=== PATIENT | female | born 1955 | race Caucasian/White ===

== ENCOUNTER 2022-01-21 23:36 | Observation (INO) | payer MEDICARE, OTHER ==
--- NOTE | 2022-01-22 00:15 | ED ---
Chest Pain HPI - General Chief Complaint: Chest Pain Stated Complaint: Chest Pain, High Blood Pressure Time Seen by Provider: 01/22/22 00:15 Source: patient, RN notes reviewed, old records reviewed Mode of arrival: ambulatory Limitations: no limitations - History of Present Illness Initial Comments: This is a 66-year-old female with nonspecific chest pain. Patient is becoming more familiar with her hospital and being seen more often recently as she is from out of town. Patient coming in for severely elevated blood pressure outpatient basis positive nausea positive shortness of breath positive chest pain. No fevers, no other complaints. Patient suffers 5 blood pressure and anxiety as well. She has had extensive workups for evaluation regarding these complaints MD Complaint: chest pain, other (HTN) -: hour(s) Onset: during rest, during exertion Pain Location: substernal Pain Radiation: none Severity: mild Severity scale (1-10): 2 Quality: tightness, other (fluttering) Consistency: intermittent Improves With: nothing Worsens With: nothing Anginal Symptoms: sense of impending doom Other Symptoms: palpitations Treatments Prior to Arrival: none - Related Data Home Medications Medication Instructions Recorded Confirmed Aspirin EC [Ecotrin Low Dose] 81 mg PO DAILY 01/10/22 01/22/22 Cholecalciferol [Vitamin D3 (25 50 mcg PO DAILY 01/10/22 01/22/22 Mcg = 1000 Iu)] HYDROcodone/APAP 5-325MG [[place] 1 tab PO HS PRN 01/10/22 01/22/22 5-325] Iron 9mg Gummie 18 mg PO DAILY 01/10/22 01/22/22 Magnesium Oxide 400 mg PO DAILY 01/10/22 01/22/22 [place]-3 Fatty Acids/Fish Oil [Fish 1 cap PO DAILY 01/10/22 01/22/22 Oil 1,000 mg Softgel] Multivitamin [Multivitamins Adult 2 tab PO DAILY 01/22/22 01/22/22 Gummies] Previous Rx's Medication Instructions Recorded Famotidine [Pepcid] 20 mg PO DAILY tab 01/11/22 Meclizine [Antivert] 25 mg PO TID #90 tab 01/11/22 busPIRone HCl [Buspar] 7.5 mg PO BID #90 tab 01/23/22 carvediloL [Coreg*] 12.5 mg PO BID-W/MEALS #60 tab 01/23/22 Allergies Allergy/AdvReac Type Severity Reaction Status Date / Time atorvastatin [From Lipitor] AdvReac Foot Pain Verified 01/22/22 06:53 Sulfa (Sulfonamide AdvReac Stomach Verified 01/22/22 06:53 Antibiotics) Pain Review of Systems ROS Statement: Those systems with pertinent positive or pertinent negative responses have been documented in the HPI. ROS Other: All systems not noted in ROS Statement are negative. EKG Findings - EKG Comments: EKG Findings:: EKG sinus rhythm 81 NH 135 QRS 90 QTC 417 Past Medical History Past Medical History: Hypertension Additional Past Medical History / Comment(s): vertigo, MVP History of Any Multi-Drug Resistant Organisms: None Reported Past Surgical History: Appendectomy, Orthopedic Surgery, Tubal Ligation Additional Past Surgical History / Comment(s): right rib removed Past Anesthesia/Blood Transfusion Reactions: No Reported Reaction Additional Past Anesthesia/Blood Transfusion Reaction / Comment(s): Pt has received blood in past without reaction. Past Psychological History: No Psychological Hx Reported Smoking Status: Former smoker Past Alcohol Use History: None Reported Past Drug Use History: None Reported - Past Family History Father Family Medical History: Cancer Additional Family Medical History / Comment(s): Father of metastatic cancer, primary unknown to pt. Mother Additional Family Medical History / Comment(s): Mother is alive. She had intestinal blockage with surgery General Exam Limitations: no limitations General appearance: alert, in no apparent distress, anxious Head exam: Present: atraumatic, normocephalic, normal inspection Eye exam: Present: normal appearance, PERRL, EOMI. Absent: scleral icterus, conjunctival injection, periorbital swelling ENT exam: Present: normal exam, mucous membranes moist Neck exam: Present: normal inspection. Absent: tenderness, meningismus, lymphadenopathy Respiratory exam: Present: normal lung sounds bilaterally. Absent: respiratory distress, wheezes, rales, rhonchi, stridor Cardiovascular Exam: Present: regular rate, normal rhythm, normal heart sounds. Absent: systolic murmur, diastolic murmur, rubs, gallop, clicks GI/Abdominal exam: Present: soft, normal bowel sounds. Absent: distended, tenderness, guarding, rebound, rigid Extremities exam: Present: normal inspection, full ROM, normal capillary refill. Absent: tenderness, pedal edema, joint swelling, calf tenderness Back exam: Present: normal inspection Neurological exam: Present: alert, oriented X3, CN II-XII intact Psychiatric exam: Present: normal affect, normal mood Skin exam: Present: warm, dry, intact, normal color. Absent: rash Course Vital Signs 01/21/22 01/22/22 01/22/22 23:43 00:33 01:35 Temperature 98.1 F Pulse Rate 78 80 73 Respiratory 16 18 18 Rate Blood Pressure 156/76 140/76 130/72 Blood Pressure [Right Arm Sitting] Blood Pressure [Right Arm Standing] Blood Pressure [Right Arm Supine] O2 Sat by Pulse 98 98 97 Oximetry 01/22/22 01/22/22 01/22/22 05:23 08:01 08:49 Temperature Pulse Rate 73 63 75 Respiratory 22 18 18 Rate Blood Pressure 108/82 126/64 Blood Pressure [Right Arm Sitting] Blood Pressure [Right Arm Standing] Blood Pressure [Right Arm Supine] O2 Sat by Pulse 100 96 96 Oximetry 01/22/22 01/22/22 01/22/22 09:15 09:31 11:53 Temperature 98.4 F Pulse Rate 66 65 Respiratory 18 18 Rate Blood Pressure 136/83 129/89 Blood Pressure 130/78 [Right Arm Sitting] Blood Pressure 136/83 [Right Arm Standing] Blood Pressure 132/70 [Right Arm Supine] O2 Sat by Pulse 97 96 Oximetry - Reevaluation(s) Reevaluation #1: 01/22/22 Record is reviewed Reevaluation #2: 01/22/22 Patient doesn't fill comfortable with discharge, still with episodic chest pain and concern that blood pressure will elevate Disposition Clinical Impression: Atypical chest pain, Chest pain, Hypertension, Anxiety Disposition: ADMITTED IP TO THIS [facility] Condition: Fair Is patient prescribed a controlled substance at d/c from ED?: No Time of Disposition: 02:05
--- NOTE | 2022-01-22 01:07 | XR ---
EXAMINATION TYPE: XR chest 2V DATE OF EXAM: 01/22/2022 COMPARISON: NONE HISTORY: Chest pain TECHNIQUE: 2 views FINDINGS: Heart and mediastinum are normal. Lungs are clear. Diaphragm is normal. There are surgical clips over the right upper lateral lung field. Diaphragm is normal. There are chest leads. Bony thora x is intact IMPRESSION: No active cardiopulmonary disease. Normal heart.
[2022-01-22 01:15] LABS: Basophils # (A) 0.1 k/uL (0-0.2); Basophils % (A) 0 %; Eosinophils # (A) 0.1 k/uL (0-0.7); Eosinophils % (A) 0 %; HCT 39.5 % (34.0-46.0); HGB 12.4 gm/dL (11.4-16.0); Lymphocytes # (A) 2.8 k/uL (1.0-4.8); Lymphocytes % (A) 23 %; MCHC 31.5 g/dL (31.0-37.0); MCV 92.1 fL (80.0-100.0); Mean Platelet Volume 7.4; Monocytes # (A) 0.7 k/uL (0-1.0); Monocytes % (A) 6 %; Neutrophils # (A) 8.5 k/uL (1.3-7.7); Neutrophils % (A) 70 %; Platelet Count 342 k/uL (150-450); RBC 4.28 m/uL (3.80-5.40); RDW 13.8 % (11.5-15.5); WBC 12.1 k/uL (3.8-10.6)
[2022-01-22 01:19] LABS: INR 0.9 (<1.2); Partial Thromboplastin Time 26.2 sec (22.0-30.0); Prothrombin Time 10.4 sec (9.0-12.0)
[2022-01-22 01:24] LABS: ALT 14 U/L (4-34); AST 26 U/L (14-36); African American GFR (CKD) >90 (>60 ml/min/1.73 sqM); Albumin 4.2 g/dL (3.5-5.0); Alkaline Phosphatase 103 U/L (38-126); Anion Gap 9 mmol/L; Blood Urea Nitrogen 31 mg/dL (7-17); Calcium 8.8 mg/dL (8.4-10.2); Carbon Dioxide 25 mmol/L (22-30); Chloride 104 mmol/L (98-107); Glucose 108 mg/dL (74-99); Magnesium 2.1 mg/dL (1.6-2.3); Non-African American GFR(CKD) >90 (>60 ml/min/1.73 sqM); Potassium 3.7 mmol/L (3.5-5.1); Sodium 138 mmol/L (137-145); Total Bilirubin 0.5 mg/dL (0.2-1.3); Total Protein 7.3 g/dL (6.3-8.2)
[2022-01-22] MEDS ORDERED: ACETAMINOPHEN TAB 325 MG TAB PO STA (02:20)
--- NOTE | 2022-01-22 09:17 | P.HPIM ---
History of Present Illness This is a pleasant 66 years old female with past medical history of hypertension, vertigo. thoracic outlet syndrome. She started seeing new PCP that she has appointment with on 02/05 Dr. Gray. 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 Leeann Corea she follows with him for mitral valve prolapse and thoracic outlet syndrome Patient presents because of chest pain Patient states that she has problem with hypertension and she's been monitoring her blood pressure for 5 months when she was first found to have significantly elevated systolic blood pressure at 275 at her [facility] office. Since then she have continuous fluttering in her chest as she However yesterday she has 2 episodes of sharp chest pain, central, nonradiating that lasted for 1-2 minutes associated with little dyspnea. Currently she is chest pain-free. No coughing. No vomiting or diarrhea. No dysuria or urgency. No headache or weakness or numbness. She denies smoking, alcohol or illicit drugs Hemodynamically patient is stable. Her blood pressure on admission was 156/76. Currently blood pressure 126/64 She has mild leukocytosis of 12.1. Trace of CBC, INR, BMP and liver enzymes are unremarkable. Troponin 3 are negative his 0.02. Chest x-ray: Negative for acute process. EKG shows normal sinus rhythm at [address]-T changes. QTC 417. in the emergency room patient was started on aspirin Cardiology team consulted, psychiatric consulted 12 Review of Systems CONSTITUTIONAL: No fever, no malaise, no fatigue. HEENT: No recent visual problems or hearing problems. Denied any sore throat. CARDIOVASCULAR: No orthopnea, PND, no palpitations, no syncope. PULMONARY: No shortness of breath, no cough, no hemoptysis. GASTROINTESTINAL: No diarrhea, no nausea, no vomiting, no abdominal pain. Normoactive bowel sounds. NEUROLOGICAL: No headaches, no weakness, no numbness. HEMATOLOGICAL: Denies any bleeding or petechiae. GENITOURINARY: Denies any burning micturition, frequency, or urgency. MUSCULOSKELETAL/RHEUMATOLOGICAL: Denies any joint pain, swelling, or any muscle pain. ENDOCRINE: Denies any polyuria or polydipsia. Past Medical History Past Medical History: Hypertension Additional Past Medical History / Comment(s): vertigo, MVP History of Any Multi-Drug Resistant Organisms: None Reported Past Surgical History: Appendectomy, Orthopedic Surgery, Tubal Ligation Additional Past Surgical History / Comment(s): right rib removed Past Anesthesia/Blood Transfusion Reactions: No Reported Reaction Additional Past Anesthesia/Blood Transfusion Reaction / Comment(s): Pt has received blood in past without reaction. Past Psychological History: No Psychological Hx Reported Smoking Status: Former smoker Past Alcohol Use History: None Reported Past Drug Use History: None Reported - Past Family History Father Family Medical History: Cancer Additional Family Medical History / Comment(s): Father of metastatic cancer, primary unknown to pt. Mother Additional Family Medical History / Comment(s): Mother is alive. She had intestinal blockage with surgery Medications and Allergies Home Medications Medication Instructions Recorded Confirmed Type Aspirin EC [Ecotrin Low Dose] 81 mg PO DAILY 01/10/22 01/22/22 History Carvedilol [Coreg] 25 mg PO BID 01/10/22 01/22/22 History Cholecalciferol [Vitamin D3 (25 50 mcg PO DAILY 01/10/22 01/22/22 History Mcg = 1000 Iu)] HYDROcodone/APAP 5-325MG [[place] 1 tab PO HS PRN 01/10/22 01/22/22 History 5-325] Iron 9mg Gummie 18 mg PO DAILY 01/10/22 01/22/22 History Magnesium Oxide 400 mg PO DAILY 01/10/22 01/22/22 History [place]-3 Fatty Acids/Fish Oil [Fish 1 cap PO DAILY 01/10/22 01/22/22 History Oil 1,000 mg Softgel] Potassium Gluconate [Potassium 99 mg PO DAILY 01/10/22 01/22/22 History Gluconate ER] hydroCHLOROthiazide [Hydrodiuril] 12.5 mg PO DAILY 01/10/22 01/22/22 History Famotidine [Pepcid] 20 mg PO DAILY tab 01/11/22 01/22/22 Rx Meclizine [Antivert] 25 mg PO TID #90 tab 01/11/22 01/22/22 Rx Multivitamin [Multivitamins Adult 2 tab PO DAILY 01/22/22 01/22/22 History Gummies] Allergies Allergy/AdvReac Type Severity Reaction Status Date / Time atorvastatin [From Lipitor] AdvReac Foot Pain Verified 01/22/22 06:53 Sulfa (Sulfonamide AdvReac Stomach Verified 01/22/22 06:53 Antibiotics) Pain Physical Exam Vitals: Vital Signs Temp Pulse Resp BP Pulse Ox 01/22/22 08:49 75 18 126/64 96 01/22/22 08:01 63 18 96 01/22/22 05:23 73 22 108/82 100 01/22/22 01:35 73 18 130/72 97 01/22/22 00:33 80 18 140/76 98 01/21/22 23:43 98.1 F 78 16 156/76 98 Intake and Output 01/21/22 01/22/22 01/22/22 22:59 06:59 14:59 Other: Weight 64.864 kg GENERAL: The patient is alert and oriented x3, not in any acute distress. Well developed, well nourished. HEENT: Pupils are round and equally reacting to light. EOMI. No scleral icterus. No conjunctival pallor. Normocephalic, atraumatic. No pharyngeal erythema. No thyromegaly. CARDIOVASCULAR: S1 and S2 present. No murmurs, rubs, or gallops. PULMONARY: Chest is clear to auscultation, no wheezing or crackles. ABDOMEN: Soft, nontender, nondistended, normoactive bowel sounds. No palpable organomegaly. MUSCULOSKELETAL: No joint swelling or deformity. EXTREMITIES: No cyanosis, clubbing, or pedal edema. NEUROLOGICAL: Gross neurological examination did not reveal any focal deficits. SKIN: No rashes. no petechiae. Results CBC & Chem 7: 01/22/22 00:41 01/22/22 00:41 Labs: Abnormal Lab Results - Last 24 Hours (Table) 01/22/22 01/22/22 Range/Units 00:41 00:41 WBC 12.1 H (3.8-10.6) k/uL Neutrophils # 8.5 H (1.3-7.7) k/uL BUN 31 H (7-17) mg/dL Glucose 108 H (74-99) mg/dL Assessment and Plan Assessment: chest pain, rule out cardiac causes anxiety Hypertension Leukocytosis, most likely reactive. History of vertigo History of thoracic outlet syndrome, open activation Plan: This is a pleasant 66 years old female who presents with chest pain and anxiety. Continue with aspirin during cardiology consult Check echocardiogram Psychiatric consult Start BuSpar Labs and medication were reviewed.. Continue same treatment. Continue with symptomatic treatment. Resume home medication. Monitor lytes and vitals. DVT and GI prophylaxis. Further recommendationsas per clinical course of the patient DVT prophylaxis: Subcutaneous heparin GI Prophylaxis: Pepcid Prognosis is guarded
[2022-01-22] MEDS: FAMOTIDINE 20 MG/2 ML VIAL IV SCH ×2 (09:28→21:13)
--- NOTE | 2022-01-22 09:28 | P.CRDCN ---
History of Present Illness History of present illness: HISTORY OF PRESENTING ILLNESS Patient is a pleasant 66-year-old female with history of hypertension, normal coronary arteries by heart catheterization in May 2021, reported Afib however not on anticoagulation, mitral valve disease per patient, thoracic outlet syndrome apparently status post right rib removal with prior numbness, peripheral neuropathy of bilateral upper and lower extremities. Patient normally follows with Dr. Oliver. She denies any history of coronary artery disease and recent had workup including left heart catheterization from May 2021 at [facility] which she was told was completely normal. She has been having symptoms of lightheadedness and dizziness and apparently extremely labile blood pressures up in the 180s at times and currently down in the low 100s. She presented to the hospital secondary to brief episodes of 2-3 seconds of sharp chest pain intermittently. Not associated with any nausea, diaphoresis and only lasting for 2-3 seconds. She also however admits to feeling more lightheaded and dizzy with getting up and walking around. She has been placed on meclizine after hospitalization 3 weeks ago with diagnosis of vertigo. She states most of her symptoms are worse with standing up and walking around. She states she was seen her PCP and apparently some of her home medications were not able to be refilled and she is looking for new PCP. She states she has however been taking the carvedilol. She believes she has actually stopped the hydrochlorothiazide. She denies any decreased appetite or change in her diet. She states she will fill her heart racing when she starts getting up and walking around. Blood work shows white blood cell count 12.1, hemoglobin 12.4, creatinine 0.6, BUN 31, troponin negative 3. EKG shows normal sinus rhythm, normal axis, nonspecific minimal ST depressions, rare PVC. REVIEW OF SYSTEMS At the time of my exam: CONSTITUTIONAL: Denies fever or chills. CARDIOVASCULAR: +chest pain, +shortness of breath, no orthopnea, PND, +palpitations. RESPIRATORY: Denies cough. GASTROINTESTINAL: Denies abdominal pain, diarrhea, constipation, nausea or vomiting. MUSCULOSKELETAL: Denies myalgias. NEUROLOGIC: Denies numbness, tingling or weakness. ENDOCRINE: Denies fatigue, weight change, polydipsia or polyurina. GENITOURINARY: Denies burning, hematuria or urgency with micturation. HEMATOLOGIC: Denies history of anemia or bleeding. PHYSICAL EXAMINATION Vital signs reviewed. CONSTITUTIONAL: No apparent distress. HEENT: Head is normocephalic. Pupils are equal, round. Sclerae anicteric. Mucous membranes of the mouth are moist. No JVD. No carotid bruit. CHEST EXAMINATION: Lungs are clear to auscultation. No chest wall tenderness is noted on palpation or with deep breathing. HEART EXAMINATION: Regular rate and rhythm. S1, S2 heard. No murmurs, gallops or rub. ABDOMEN: Soft, nontender. Positive bowel sounds. EXTREMITIES: 2+ peripheral pulses, no lower extremity edema and no calf tenderne ss. NEUROLOGIC EXAMINATION: Patient is awake, alert and oriented x3. ASSESSMENT 1. Palpitations, episodes of feeling heart racing when standing up and walking around 2. Extremely labile hypertension systolics 110s to 180s per patient. May be exacerbated by anxiety 3. Increased BUN to creatinine, questionable component of dehydration 4. Lightheadedness, mildly improved with meclizine however still symptomatic. Rule out component of orthostatic hypotension. May be exacerbated by dehydrati on 5. History of thoracic outlet syndrome status post right rib removal 6. Reported paroxysmal atrial fibrillation, none seen currently. Not on any anticoagulation at home 7. Normal coronary arteries by heart catheterization in May 2021 per patient 8. History of mitral valve disease, no significant murmur on exam PLAN Patient with a number of symptoms mainly lightheadedness over the last 3-4 weeks. This has not significantly changed with the meclizine and appears more orthostatic in nature. Hold hydrochlorothiazide, check orthostatic vitals, give IV fluids at 100 mL per hour. Check 2-D echo. May need some adjustments in blood pressure medications with blood pressure is borderline low however apparently very labile blood pressures up into the 180s and patient reports even in the 270s. Obtain records from [place] [facility] and Dr. Oliver office. Given normal heart catheterization from May and atypical symptoms with normal troponins no need for stress testing currently. If blood pressure controlled, orthostatic symptoms are improved, and no significant findings on echo, patient may be discharged home with outpt followup in [address] Oliver. Past Medical History Past Medical History: Hypertension Additional Past Medical History / Comment(s): vertigo, MVP History of Any Multi-Drug Resistant Organisms: None Reported Past Surgical History: Appendectomy, Orthopedic Surgery, Tubal Ligation Additional Past Surgical History / Comment(s): right rib removed Past Anesthesia/Blood Transfusion Reactions: No Reported Reaction Additional Past Anesthesia/Blood Transfusion Reaction / Comment(s): Pt has received blood in past without reaction. Past Psychological History: No Psychological Hx Reported Smoking Status: Former smoker Past Alcohol Use History: None Reported Past Drug Use History: None Reported - Past Family History Father Family Medical History: Cancer Additional Family Medical History / Comment(s): Father of metastatic cancer, primary unknown to pt. Mother Additional Family Medical History / Comment(s): Mother is alive. She had intestinal blockage with surgery Medications and Allergies Home Medications Medication Instructions Recorded Confirmed Type Aspirin EC [Ecotrin Low Dose] 81 mg PO DAILY 01/10/22 01/22/22 History Carvedilol [Coreg] 25 mg PO BID 01/10/22 01/22/22 History Cholecalciferol [Vitamin D3 (25 50 mcg PO DAILY 01/10/22 01/22/22 History Mcg = 1000 Iu)] HYDROcodone/APAP 5-325MG [[place] 1 tab PO HS PRN 01/10/22 01/22/22 History 5-325] Iron 9mg Gummie 18 mg PO DAILY 01/10/22 01/22/22 History Magnesium Oxide 400 mg PO DAILY 01/10/22 01/22/22 History [place]-3 Fatty Acids/Fish Oil [Fish 1 cap PO DAILY 01/10/22 01/22/22 History Oil 1,000 mg Softgel] Potassium Gluconate [Potassium 99 mg PO DAILY 01/10/22 01/22/22 History Gluconate ER] hydroCHLOROthiazide [Hydrodiuril] 12.5 mg PO DAILY 01/10/22 01/22/22 History Famotidine [Pepcid] 20 mg PO DAILY tab 01/11/22 01/22/22 Rx Meclizine [Antivert] 25 mg PO TID #90 tab 01/11/22 01/22/22 Rx Multivitamin [Multivitamins Adult 2 tab PO DAILY 01/22/22 01/22/22 History Gummies] Allergies Allergy/AdvReac Type Severity Reaction Status Date / Time atorvastatin [From Lipitor] AdvReac Foot Pain Verified 01/22/22 06:53 Sulfa (Sulfonamide AdvReac Stomach Verified 06/01/22 06:53 Antibiotics) Pain Physical Exam Vitals: Vital Signs Temp Pulse Resp BP Pulse Ox 01/22/22 08:49 75 18 126/64 96 01/22/22 08:01 63 18 96 01/22/22 05:23 73 22 108/82 100 01/22/22 01:35 73 18 130/72 97 01/22/22 00:33 80 18 140/76 98 01/21/22 23:43 98.1 F 78 16 156/76 98 Intake and Output 01/21/22 01/22/22 01/22/22 22:59 06:59 14:59 Other: Weight 64.864 kg Results 01/22/22 00:41 01/22/22 00:41 Cardiac Enzymes 01/22/22 01/22/22 01/22/22 Range/Units 00:41 00:41 02:34 AST 26 (14-36) U/L Troponin I <0.012 <0.012 (0.000-0.034) ng/mL 01/22/22 Range/Units 05:27 AST (14-36) U/L Troponin I <0.012 (0.000-0.034) ng/mL Coagulation 01/22/22 Range/Units 00:41 PT 10.4 (9.0-12.0) sec APTT 26.2 (22.0-30.0) sec CBC 01/22/22 Range/Units 00:41 WBC 12.1 H (3.8-10.6) k/uL RBC 4.28 (3.80-5.40) m/uL Hgb 12.4 (11.4-16.0) gm/dL Hct 39.5 (34.0-46.0) % Plt Count 342 (150-450) k/uL Comprehensive Metabolic Panel 01/22/22 Range/Units 00:41 Sodium 138 (137-145) mmol/L Potassium 3.7 (3.5-5.1) mmol/L Chloride 104 (98-107) mmol/L Carbon Dioxide 25 (22-30) mmol/L BUN 31 H (7-17) mg/dL Creatinine 0.65 (0.52-1.04) mg/dL Glucose 108 H (74-99) mg/dL Calcium 8.8 (8.4-10.2) mg/dL AST 26 (14-36) U/L ALT 14 (4-34) U/L Alkaline Phosphatase 103 (38-126) U/L Total Protein 7.3 (6.3-8.2) g/dL Albumin 4.2 (3.5-5.0) g/dL Current Medications Generic Name Dose Route Start Last Admin Trade Name Freq PRN Reason Stop Dose Admin Aspirin 325 mg 01/23/22 09:00 Aspirin 325 Mg Tab PO DAILY WILL Famotidine 20 mg 01/22/22 09:00 Famotidine 20 Mg/2 Ml Vial IV Q12HR [facility] 1928–1983 Heparin Sodium (Porcine) 5,000 unit 01/22/22 09:00 Heparin Sodium,Porcine/Pf 5,000 Unit/0.5 Ml Syringe SQ Q12HR [facility], 1928–1983 Intake and Output 01/21/22 01/22/22 01/22/22 22:59 06:59 14:59 Other: Weight 64.864 kg 01/22/22 00:41 01/22/22 00:41
[2022-01-22] MEDS: busPIRone HCl 5 MG TAB PO SCH ×2 (09:29→21:14)
[2022-01-22] MEDS: SODIUM CHLORIDE 0.9% 1,000 ML IV SCH ×2 (09:30→21:15)
[2022-01-22] MEDS: HEPARIN SODIUM,PORCINE/PF 5,000 UNIT/0.5 ML SYRINGE SQ SCH ×2 (09:30→21:13)
[2022-01-22 09:48] LABS: Basophils % (A) 1 %; Eosinophils # (A) 0.1 k/uL (0-0.7); Eosinophils % (A) 1 %; HCT 36.8 % (34.0-46.0); HGB 11.8 gm/dL (11.4-16.0); Hypochromasia Slight; Lymphocytes # (A) 2.7 k/uL (1.0-4.8); Lymphocytes % (A) 30 %; MCH 30.4 pg (25.0-35.0); MCV 94.9 fL (80.0-100.0); Mean Platelet Volume 7.3; Monocytes # (A) 0.4 k/uL (0-1.0); Monocytes % (A) 5 %; Neutrophils # (A) 5.6 k/uL (1.3-7.7); Neutrophils % (A) 62 %; Platelet Count 338 k/uL (150-450); RBC 3.88 m/uL (3.80-5.40); RDW 14.2 % (11.5-15.5); WBC 8.9 k/uL (3.8-10.6)
--- NOTE | 2022-01-22 11:20 | CA ---
Transthoracic Echo Report Name: Nena Lovelace Age: 66 Gender: F : 1955 Exam Date: 01/22/2022 08:25 Exam Location: [facility] Ht (in): 63 Wt (lb): 143 Ordering Physician: Aston Winkler DO Attending/Referring Phys: [id number], [place] Exhibit Display Representative Kayla Nelson, TWAN Procedure CPT: Indications: CP Cardiac Hx: Technical Quality: Good Contrast 1: Total Dose (mL): Contrast 2: Total Dose (mL): MEASUREMENTS (Male / Female) Normal Values 2D ECHO LV Diastolic Diameter PLAX 4.0 cm 4.2 - 5.9 / 3.9 - 5.3 cm LV Systolic Diameter PLAX 2.2 cm IVS Diastolic Thickness 1.0 cm 0.6 - 1.0 / 0.6 - 0.9 cm LVPW Diastolic Thickness 1.1 cm 0.6 - 1.0 / 0.6 - 0.9 cm LV Relative Wall Thickness 0.5 RV Internal Dim ED PLAX 2.8 cm LA Systolic Diameter LX 2.8 cm 3.0 - 4.0 / 2.7 - 3.8 cm M-MODE Aortic Root Diameter MM 2.8 cm MV E Point Septal Separation 0.5 cm AV Cusp Separation MM 1.8 cm DOPPLER AV Peak Velocity 124.1 cm/s AV Peak Gradient 6.2 mmHg MV Area PHT 2.0 cm??? Mitral E Point Velocity 63.2 cm/s Mitral A Point Velocity 86.3 cm/s Mitral E to A Ratio 0.7 MV Deceleration Time 381.6 ms MV E' Velocity 7.6 cm/s Mitral E to MV E' Ratio 8.3 TR Peak Velocity 227.1 cm/s TR Peak Gradient 20.6 mmHg Right Ventricular Systolic Press 25.5 mmHg FINDINGS Left Ventricle Left ventricular ejection fraction is estimated at 55-60 %. Left ventricular cavity size normal. Left ventricular wall thickness normal. Right Ventricle Normal right ventricular size. Right ventricular systolic pressure within normal limits. Right Atrium Normal right atrial size. Left Atrium Normal left atrial size. No evidence for an atrial septal defect. Mitral Valve Structurally normal mitral valve. No mitral stenosis, regurgitation or prolapse. Aortic Valve Trileaflet aortic valve. No aortic valve stenosis or regurgitation. Tricuspid Valve Mild tricuspid regurgitation. Pulmonic Valve Trace pulmonic regurgitation. Pericardium Normal pericardium. Aorta Normal size aortic root and proximal ascending aorta. CONCLUSIONS Normal left ventricular ejection fraction 55-60% Normal left ventricular thickness Mild tricuspid regurgitation No pericardial effusion Previewed by: Dr. Juan Lagunas DO (Electronically Signed) Final Date: 22 January 2022 11:19
--- NOTE | 2022-01-22 13:47 | P.CN ---
Psychiatric Consult - . Consult date: 01/22/22 Consult:: IDENTIFYING DATA: This patient is a 66 yo F who currently lives with her boyfriend, and a house, has 4 kids and collects Social Security. REASON FOR REFERRAL: Psychiatry was consulted for anxiety HISTORY OF PRESENT ILLNESS: The patient presented to the hospital yesterday complaining of chest pain and also increase in her blood pressure. Cardiology has been consulted and following along. Patient was seen at the bedside today and agreeable to speak to designer/writer. Patient was calm and directable during conversation. She answered questions appropriately. She was questioning why designer/writer was consulted as she believes that she does not need to speak to a psychiatrist. She states that she was having "heart fluttering" he also described palpitations. She states that her blood pressures and labile for the past several weeks now. She claims that she is having back pain as well. She is denying any depression at this time and denying any current anxiety. She states that she "asked for something yesterday to calm down" however claims that she does not want any more medications. She states that the BuSpar was started in the hospital and does not take anything for psychiatric reasons outside the hospital. She states that her sleep has been fair and appetite as been fair. At this time patient denies any suicidal or homical ideations, intent or plan. Patient denies any auditory, visual hallucinations and denies any paranoia or delusions. Patients admits to using . No recreational drugs or cigarettes PAST PSYCHIATRIC HISTORY: Patient has a a history of anxiety. Patient denies being on any psychiatric medications at home however does have BuSpar ordered since being in the hospital. Patient denies any previous psychiatric hospitalizations. Patient denies any psychiatric outpatient follow-up. Patient denies any history of suicide attempts in the past. Past Medical History: Hypertension Additional Past Medical History / Comment(s): vertigo, MVP ALLERGIES: as per EMR. CHEMICAL DEPENDENCY HISTORY: as per HPI. FAMILY PSYCHIATRIC/SUBSTANCE USE HISTORY: She states that her brother and sister both have bipolar disorder. SOCIAL HISTORY: Patient was born and raised in [facility]. She states kaitlynn t she worked in several factories in the past. She states that she currently collects Social Security she has 4 kids lives with her boyfriend in a house. She states that she completed up to 10th grade in school. She states that she did get a felony several decades ago when she took her kids to [place] after her divorce. MENTAL STATUS EXAM: General Appearance: Patient appears to be stated age is alert, pleasant, and cooperative. Patient appears to have fair hygiene and grooming wearing hospital gown with fair eye contact. Behavior: Patient is calmly lying in bed without any agitated behavior. Speech: Patient's speech is fluent and nonpressured. Mood/Affect: Patient reports their mood is "OK now", affect is congruent Suicidality/Homicidality: Patient denies having any suicidal or homicidal ideation intent or plan. Perceptions: Patient denies any visual hallucinations and denies any auditory hallucinations Though content/process: There is no evidence of any delusional thought content and thought process is linear and goal-directed. Memory and concentration: AOX3, grossly intact for the purposes of this session. Can spell "WORLD" backwards Judgment and insight: Fair IMPRESSIONS: Anxiety disorder unspecified, rule out panic disorder versus generalized anxiety disorder PLAN: -At this time patient DOES NOT meet criteria for inpatient psychiatric admission. -Would recommend the following medication changes/additions: Continue with BuSpar 7.5 mg twice a day for anxiety. Patient is not interested in any other psychiatric medications at this time. -school social worker to provide patient with outpatient mental health/psychiatry resources for appropriate follow up upon discharge -Communicated plan to patient's nurse -Psychiatry will sign off at this time -Please contact with any questions. 01/22/22 13:42
[2022-01-22] MEDS: ACETAMINOPHEN TAB 325 MG TAB PO PRN (17:58)
[2022-01-23] MEDS: SODIUM CHLORIDE 0.9% 1,000 ML IV SCH (04:25)
[2022-01-23 04:29] VITALS: RESP 16
[2022-01-23 07:45] VITALS: BP 155/89; PULSE 60; TEMP 98
[2022-01-23] MEDS: ACETAMINOPHEN TAB 325 MG TAB PO PRN (08:43)
[2022-01-23] MEDS: busPIRone HCl 5 MG TAB PO SCH (08:43)
[2022-01-23] MEDS: HEPARIN SODIUM,PORCINE/PF 5,000 UNIT/0.5 ML SYRINGE SQ SCH (08:58)
[2022-01-23] MEDS ORDERED: FAMOTIDINE 20 MG TAB PO SCH (09:00)
[2022-01-23] MEDS ORDERED: ASPIRIN 325 MG TAB PO SCH (09:00)
[2022-01-23] MEDS ORDERED: ASPIRIN 81 MG PO SCH (09:00)
--- NOTE | 2022-01-23 11:38 | P.PN ---
Subjective Progress Note Date: 01/23/22 HISTORY OF PRESENTING ILLNESS Patient is a pleasant 66-year-old female with history of hypertension, normal coronary arteries by heart catheterization in May 2021, reported Afib however not on anticoagulation, mitral valve disease per patient, thoracic outlet syndrome apparently status post right rib removal with prior numbness, peripheral neuropathy of bilateral upper and lower extremities. Patient normally follows with Dr. Oliver. She denies any history of coronary artery disease and recent had workup including left heart catheterization from May 2021 at [facility] which she was told was completely normal. She has been having symptoms of lightheadedness and dizziness and apparently extremely labile blood pressures up in the 180s at times and currently down in the low 100s. She presented to the hospital secondary to brief episodes of 2-3 seconds of sharp chest pain intermittently. Not associated with any nausea, diaphoresis and only lasting for 2-3 seconds. She also however admits to feeling more lightheaded and dizzy with getting up and walking around. She has been placed on meclizine after hospitalization 3 weeks ago with diagnosis of vertigo. She states most of her symptoms are worse with standing up and walking around. She states she was seen her PCP and apparently some of her home medications were not able to be refilled and she is looking for new PCP. She states she has however been taking the carvedilol. She believes she has actually stopped the hydrochlorothiazide. She denies any decreased appetite or change in her diet. She states she will fill her heart racing when she starts getting up and walking around. Blood work shows white blood cell count 12.1, hemoglobin 12.4, creatinine 0.6, BUN 31, troponin negative 3. EKG shows normal sinus rhythm, normal axis, nonspecific minimal ST depressions, rare PVC. 01/23/2022 Patient examined this morning at the bedside. Patient denies chest pain or pressure. Denies SOB. Patients blood pressures remain labile with a reading of 111/65 at 0200 and 155/89 this morning at 0700. Echocardiogram completed revealing ejection fraction 55-60% with mild tricuspid regurgitation. PHYSICAL EXAMINATION Vital signs reviewed. CONSTITUTIONAL: No apparent distress. HEENT: Head is normocephalic. Pupils are equal, round. Sclerae anicteric. Mucous membranes of the mouth are moist. No JVD. No carotid bruit. CHEST EXAMINATION: Lungs are clear to auscultation. No chest wall tenderness is noted on palpation or with deep breathing. HEART EXAMINATION: Regular rate and rhythm. S1, S2 heard. No murmurs, gallops or rub. ABDOMEN: Soft, nontender. Positive bowel sounds. EXTREMITIES: 2+ peripheral pulses, no lower extremity edema and no calf tenderness. NEUROLOGIC EXAMINATION: Patient is awake, alert and oriented x3. ASSESSMENT 1. Palpitations, episodes of feeling heart racing when standing up and walking around 2. Extremely labile hypertension systolics 110s to 180s per patient. May be exacerbated by anxiety 3. Increased BUN to creatinine, questionable component of dehydration 4. Lightheadedness, mildly improved with meclizine however still symptomatic. Rule out component of orthostatic hypotension. May be exacerbated by dehydration 5. History of thoracic outlet syndrome status post right rib removal 6. Reported paroxysmal atrial fibrillation, none seen currently. Not on any anticoagulation at home 7. Normal coronary arteries by heart catheterization in May 2021 per patient 8. History of mitral valve disease, no significant murmur on exam PLAN Decrease aspirin to 81mg daily Resume Coreg at 12.5mg BID Patient may be discharged home today from a cardiac standpoint and follow up with her primary anthropology lecturer, Dr. Oliver. Nurse practitioner note has been reviewed by physician. Signing provider agrees with the documented findings, assessment, and plan of care. Objective - Vital Signs Vital signs: Vital Signs Temp 98 F 01/23/22 07:00 Pulse 60 01/23/22 07:00 Resp 16 01/23/22 07:00 BP 155/89 01/23/22 07:00 Pulse Ox 97 01/23/22 07:00 FiO2 Intake & Output 01/22/22 01/23/22 01/23/22 18:59 06:59 18:59 Intake Total 240 Balance 240 Weight 64.864 kg Intake: Oral 240 Other: # Voids 1 1 1 - Labs CBC & Chem 7: 01/22/22 05:27 01/22/22 00:41
[2022-01-23] MEDS ORDERED: carvediloL 12.5 MG TAB PO SCH (17:30)
--- NOTE | 2022-01-23 18:36 | P.DS ---
Providers Date of admission: 01/22/22 02:07 Attending physician: Ynes Weldon Consults: 01/22/22 02:06 Consult Physician Routine Consulting Provider: Newton العراقي Reason/Comments: anxiety Do you want consulting provider notified?: Yes Primary care physician: Stated None Hospital Course: Diagnoses: chest pain, rule out cardiac causes anxiety Hypertension Leukocytosis, most likely reactive. History of vertigo History of thoracic outlet syndrome, open activation Hospital course: This is a pleasant 66 years old female with past medical history of hypertension, vertigo. thoracic outlet syndrome. She started seeing new PCP that she has appointment with on 02/05 Dr. Gray. Also on and she has appointment with her relocation specialist Dr. Leeann Corea she follows with him for mitral valve prolapse and thoracic outlet syndrome Patient presents because of chest pain. Patient has been evaluated by relocation specialist and psychiatric for anxiety and chest pain. Field Associate wants her to be dehydrated and recommended IV fluid. His symptoms improved and today she denies any chest pain, no dyspnea. Her anxiety improved with BuSpar started and patient tolerated that medication well. On the day of discharge patient denies chest pain or dyspnea. No abdominal pain or vomiting. No change in urine or bowel habits. No fever Her echocardiogram showed ejection fraction of 55-60% on discharge her hydrochlorothiazide was discontinued and/or the dose of Coreg 25 down to 12.5 mg per recommendation of relocation specialist Patient was cleared for discharge by relocation specialist and psychiatrist Problems and management plan were discussed with the patient and he verbalized understanding and acceptance Patient was found stable and can be discharged home and guarded prognosis however he needs follow-up as an outpatient. Patient was instructed to follow up with PCP within one week and patient agrees Patient was instructed to follow up with her relocation specialist Dr. baca in one week and she agrees. Patient told me she has an appointment with her PCP on Dr. Delgado, her new PCP and she has already appointment with relocation specialist on 02/07 that she intends to follow up with Physical exam Gen: patient is a AAOx3, no distress CVS: S1-S2, RRR, no murmur Lungs: B/L CTA, no wheezing Abdomen: soft, no distention, no tenderness, positive bowel sounds Extremity: no leg edema or induration Time spent more than 35 minutes Patient Condition at Discharge: Fair Plan - Discharge Summary Discharge Rx Participant: No New Discharge Prescriptions: New busPIRone HCl [Buspar] 7.5 mg PO BID #90 tab carvediloL [Coreg*] 12.5 mg PO BID-W/MEALS #60 tab Continue HYDROcodone/APAP 5-325MG [[place] 5-325] 1 tab PO HS PRN PRN Reason: Pain Iron 9mg Gummie 18 mg PO DAILY Prentiss-3 Fatty Acids/Fish Oil [Fish Oil 1,000 mg Softgel] 1 cap PO DAILY Magnesium Oxide 400 mg PO DAILY Cholecalciferol [Vitamin D3 (25 Mcg = 1000 Iu)] 50 mcg PO DAILY Meclizine [Antivert] 25 mg PO TID #90 tab Aspirin EC [Ecotrin Low Dose] 81 mg PO DAILY Famotidine [Pepcid] 20 mg PO DAILY tab Multivitamin [Multivitamins Adult Gummies] 2 tab PO DAILY Discontinued Potassium Gluconate [Potassium Gluconate ER] 99 mg PO DAILY Carvedilol [Coreg] 25 mg PO BID hydroCHLOROthiazide [Hydrodiuril] 12.5 mg PO DAILY Discharge Medication List Aspirin EC [Ecotrin Low Dose] 81 mg PO DAILY 01/10/22 [History] Cholecalciferol [Vitamin D3 (25 Mcg = 1000 Iu)] 50 mcg PO DAILY 01/10/22 [History] HYDROcodone/APAP 5-325MG [[place] 5-325] 1 tab PO HS PRN 01/10/22 [History] Iron 9mg Gummie 18 mg PO DAILY 01/10/22 [History] Magnesium Oxide 400 mg PO DAILY 01/10/22 [History] Prentiss-3 Fatty Acids/Fish Oil [Fish Oil 1,000 mg Softgel] 1 cap PO DAILY 01/10/22 [History] Famotidine [Pepcid] 20 mg PO DAILY tab 01/11/22 [Rx] Meclizine [Antivert] 25 mg PO TID #90 tab 01/11/22 [Rx] Multivitamin [Multivitamins Adult Gummies] 2 tab PO DAILY 01/22/22 [History] busPIRone HCl [Buspar] 7.5 mg PO BID #90 tab 01/23/22 [Rx] carvediloL [Coreg*] 12.5 mg PO BID-W/MEALS #60 tab 01/23/22 [Rx] Follow up Appointment(s)/Referral(s): Suresh Baca MD [REFERRING] - 02/07/22 None,Stated [Primary Care Provider] - 02/05/22 Patient Instructions/Handouts: Chest Pain (DC), Anxiety (ED) Activity/Diet/Wound Care/Special Instructions: Heart healthy diet Activity is restricted till you see your doctor We recommend he follow-up with your neurologist for chronic vertigo you have the contact information as you informed the medical team, please call to make an appointment within 1 week Discharge Disposition: HOME SELF-CARE
== END 2022-01-23 13:37 | disposition home or self-care (01) ==
LOC: EC 23:36 → 6NMEDSUR 01-22 02:07
PROVIDERS: ADMIT Hospitalist; ATTEND Hospitalist
DX: R07.89 Other chest pain (principal); F41.9 Anxiety disorder, unspecified; I34.1 Nonrheumatic mitral (valve) prolapse; G54.0 Brachial plexus disorders; I48.0 Paroxysmal atrial fibrillation; I10 Essential (primary) hypertension; R42 Dizziness and giddiness; R11.0 Nausea; R06.00 Dyspnea, unspecified; D72.829 Elevated white blood cell count, unspecified; G62.9 Polyneuropathy, unspecified; Z79.82 Long term (current) use of aspirin; Z79.899 Other long term (current) drug therapy; Z88.2 Allergy status to sulfonamides; Z88.8 Allergy status to other drugs, medicaments and biological substances; Z98.51 Tubal ligation status; Z90.49 Acquired absence of other specified parts of digestive tract; Z98.890 Other specified postprocedural states; Z90.89 Acquired absence of other organs; Z87.891 Personal history of nicotine dependence; Z80.9 Family history of malignant neoplasm, unspecified; Z83.79 Family history of other diseases of the digestive system
CPT/HCPCS: 96376; 96361 ×2; 96374; 99285; 36415; 93005; 93306; 80053; 83735; 84484; 85025; 85610; 85730; 71046; G0378 ×2